=== PATIENT | male | born 1955 | race Caucasian/White ===

== ENCOUNTER → 2019-03-21 | Outpatient (CLI) | payer BC ==
--- NOTE | 2019-03-21 16:15 | RAD ---
EXAM: AP, bilateral oblique, lateral, open-mouth odontoid views of the cervical spine. DATE: 03/21/2019 12:00 AM CLINICAL HISTORY: COMPARISON: None available. FINDINGS: On the lateral view, the cervical spine is imaged from the skull base to C6. Vertebral body heights are preserved. Intervertebral disc heights are preserved. Mild straightening of the normal cervical lordosis.No spondylolisthesis. Oblique views do not demonstrate bony foraminal narrowing. There is no offset of the lateral masses of C1 on C2. Normal predental space. No significant prevertebral soft tissue swelling. IMPRESSION: No evidence for acute fracture or subluxation. Electronically signed by: Romel Ferrari MD (03/21/2019 4:12 PM) [id number]
--- NOTE | 2019-03-21 16:19 | RAD ---
EXAM: AP, lateral and lumbosacral spot views with bilateral oblique views of the lumbar spine DATE: 03/21/2019 12:00 AM INDICATION: Chronic low back pain. COMPARISON: No Prior FINDINGS: For the purposes of this report there are 5 nonrib-bearing lumbar-type vertebral bodies. Vertebral body heights are preserved. There is trace retrolisthesis of L2 on L3 and L3 on L4. Small endplate osteophytes are seen. Mild T10-11, T11-12, T12-L1, L1-L2 and moderate L5-S1 disc height loss. On the oblique views, no definite pars defects are seen. Moderate facet degenerative changes are seen at L3 and below. No evidence for acute fracture or subluxation. Atherosclerotic vascular calcifications are seen. IMPRESSION: 1. Multilevel spondylosis as above 2. Negative acute fracture. 3. Trace retrolisthesis of L2 on L3 and L3 and L4. Electronically signed by: Romel Ferrari MD (03/21/2019 4:16 PM) [id number]
== END | disposition home or self-care (01) ==
LOC: PMG 15:38
PROVIDERS: ATTEND Physician Assistant Medical
DX: M47.896 Other spondylosis, lumbar region (principal); M25.78 Osteophyte, vertebrae; M40.292 Other kyphosis, cervical region
CPT/HCPCS: 72050; 72110